=== PATIENT | male | born 1945 | race Caucasian/White ===

== ENCOUNTER 2016-08-21 02:26 | Day surgery (SDC) | payer MEDICARE, OTHER ==
[2016-08-21] VITALS (8 sets, daily range): BP systolic 83–127; BP diastolic 60–85; PULSE 76–117; RESP 12–16; O2SAT 96–100
[~2016-08-21] VITALS: Ht 180.3 cm; Wt 104.0 kg
[~2016-08-21 02:26] MED LIST: ATOR20TA PO; CHOL100045 PO; CYAN250014 PO; DABI150C PO; FERR-83 PO; HYDR25TA4 PO; LEVE500T3 PO; METO25TA6 PO
[2016-08-21] MEDS ORDERED: fentaNYL-PF 50 mCg/mL 2 mL Inj IVPUSH PRN (06:00)
[2016-08-21] MEDS ORDERED: Sodium Chloride LOK Flush 10 mL Syringe IV PRN (06:00)
[2016-08-21] MEDS ORDERED: 0.9% Sodium Chloride 1,000 ML IV ONE (12:52)
--- NOTE | 2016-08-21 12:59 | PCM.ENDEGD ---
EGD Date of Service: Aug 21, 2016 Physician Neptali Mcclain MD Pre Procedure Diagnosis: Anemia Post Procedure Dx & Findings: Atrophic gastritis and esophagitis Procedure Esophagogastroduodenoscopy PROCEDURE IN DETAIL: After proper sedation, Olympus video endoscope was inserted into patient's mouth and esophagus was successfully intubated. Scope introduced esophagus. Esophagus showed normal shiny whitish mucosa consistent with squamous cell component. Z line was in irregular tact at 40 cm from the incisors. Biopsies were obtained. Scope further events to the stomach.Stomach showed significant atrophy with decreased rugae folds with mild redness consistent with atrophic gastropathy. Biopsies obtained. Cardia fundus body antrum pylorus were all visualized. Retroflexion was done. Stomach was easily inflated and deflatable using air. Scope further events to the distal duodenum. Duodenum revealed normal villous structures with normal appearing folds without any mass ulcer erosion. 5 biopsies obtained. Impression Irregular Z line Atrophic gastropathy Recommendation Follow up in the GI clinic with PA's Presedation Assessment Risks and Benefits Informed consent was obtained from the patient after all risks and benefits including but not limited to drug reaction, infection, pain, bleeding, perforation, as well as alternatives were discussed. Patient monitoring Continuous pulse oximetry, cardiac monitoring, blood pressure monitoring, IV access, and oxygen at 2L per nasal cannula. Periprocedural Fentanyl: Fentanyl 100mcg Incrementally Midazolam: Midazolam 6mg Incrementally Complications There were no periprocedural complications identified. Post Procedure Plan Post Procedure Recommendations 1. Restrict activities today. 2. Resume normal activities in the morning. 3. Resume medications. 4. GERD behavioral modification: - Avoid fatty, acidic, spicy, large meals - Do not lie down after meals - Do not eat or drink anything for at least 2 1/2 hours before going to bed at night - Discontinue tobacco and alcohol - Decrease or avoid caffeine - Avoid chocolate and mints - Decrease weight - Avoid aspirin and non steroidal anti-inflammatory agents (NSAID) such as Aleve, Advil, Mobic, Naproxen, Ibuprofen, etc 5. Add proton pump inhibitor. Take 30 minutes before 1st meal of the day. 6. Patient informed of normal post procedure side effects as bloating, drowsiness, blood streaking in the stool 7. If gastric biopsy reveal H.pylori, continue with appropriate treatment 8. If small bowel biopsy reveals celiac, continue with appropriate treatment 9. Please don't hesitate to call me with any questions Neptali Mcclain MD Aug 21, 2016 12:59
--- NOTE | 2016-08-21 13:01 | PCM.ENDCOL ---
Colonoscopy Date of Service: Aug 21, 2016 Physician Neptali Mcclain MD Pre Procedure Diagnosis: Anemia Post Procedure Dx & Findings: Polyp hemorrhoids and diverticula Procedure Colonoscopy PROCEDURE IN DETAIL: Prep adequate Withdrawal time 12 minutes After unremarkable rectal examination the Olympus video colonoscope was inserted patient's anal canal and was advanced to cecum. Landmarks were identified including the ileocecal valve and appendiceal orifice. Scope further events to the terminal ileum. Advanced 10 cm. Normal villous structures without ulcer or mass erosion noted. Scope was withdrawn systematically. Visualized colonic mucosa showed healthy shiny mucosa with normal healthy-appearing vasculature. Multiple Diverticuli noted small to large from the distal sigmoid to the transverse colon. 2 mm polyp noted in the rectum. This was removed completely with cold snare. In the rectum retroflexion was done which showed hemorrhoids. Anal canal was inspected carefully on the way out and hemorrhoids noted. Impression Polyp 1 status post complete removal Diverticuli Hemorrhoids Normal terminal ileum Recommendation Repeat colonoscopy 5 years Diverticular diet Presedation Assessment Risks and Benefits Informed consent was obtained from the patient after all risks and benefits including but not limited to drug reaction, infection, pain, bleeding, perforation, as well as alternatives were discussed. Patient monitoring Continuous pulse oximetry, cardiac monitoring, blood pressure monitoring, IV access, and oxygen at 2L per nasal cannula. Periprocedural Fentanyl: Fentanyl 100mcg Incrementally Midazolam: Midazolam 6mg Incrementally Complications There were no periprocedural complications identified. Post Procedure Plan Post Procedure Recommendations 1. Restrict activities today. 2. Resume normal activities in the morning. 3. Resume medications. 4. Patient informed of normal post procedure side effects as bloating, drowsiness, blood streaking in the stool. 5. average risk CRCS. If colon polyps come back as: -Hyperplastic- can repeat colonoscopy in 10 years -Tubular adenoma- repeat colonoscopy in 5 years -Tubulovillous/villous adenoma- repeat colonoscopy in 3 years -If any dysplasia- return to clinic as soon as possible 6. Please don't hesitate to call me with any questions. Neptali Mcclain MD Aug 21, 2016 13:01
--- NOTE | 2016-08-22 13:45 | PATH ---
SURGICAL PATHOLOGY Attending Physician:Neptali Mcclain M.D. CASE STATUS: Signed Out PATIENT NAME: JIGAR BOOKER PID: [id number] : 1945 DATE COLLECTED:08/21/2016 23:32 SPECIMEN: 1: Duodenum, Biopsy 2: Stomach, Antrum, Biopsy 3: Esophagus, Biopsy 4: Rectum, Biopsy CLINICAL HISTORY: 1). DUODENAL BIOPSY 2). GASTRIC ANTRUM - R/O H.PYLORI 3). DISTAL ESOPHAGUS 4). RECTAL POLYP X1 FINAL DIAGNOSIS: 1.DUODENAL BIOPSY: FRAGMENTS OF NORMAL-APPEARING DUODENUM MUCOSA. Normal delicate mucosal villi present. Negative for significant inflammation, dysplasia and malignancy. 2.GASTRIC ANTRUM BIOPSY: DIFFUSE MODERATE TO SEVERE CHRONIC GASTRITIS INVOLVING ANTRAL MUCOSA. Immunohistochemistry for Helicobacter pending, to be reported by addendum. Focally positive for intestinal metaplasia. Negative for dysplasia and malignancy. 3.DISTAL ESOPHAGUS BIOPSY: FRAGMENT OF GASTRIC CARDIA-TYPE MUCOSA WITH NO SQUAMOUS MUCOSA IDENTIFIED. CHRONIC INFLAMMATION WITH REACTIVE CHANGES, BUT NEGATIVE FOR SPECIALIZED METAPLASIA OF LOMELI' S-TYPE ESOPHAGUS. Negative for dysplasia and malignancy. 4.RECTAL POLYP: HYPERPLASTIC POLYP. ICD10 K29.70 GROSS DESCRIPTION: The specimen is received in four formalin filled containers labeled with the patient's name. 1). The specimen is sublabeled "duodenum" and consists of 3 portions of tissue which aggregate to 0.1 x 0.1 x 0.1 CM to 0.3 x 0.2 x 0.2 CM. All fragments are totally submitted in cassette 1A. 2). The specimen is sublabeled "gastric antrum" and consists of 3 portions of tissue which aggregate to 0.3 x 0.2 x 0.2 CM. The specimen is entirely submitted in cassette 2A. 3). The specimen is sublabeled "distal esophagus" and consists of a 0.3 x 0.3 x 0.2 CM portion of tissue which is entirely submitted in cassette 3A. 4). The specimen is sublabeled "rectal polyps" and consists of a 0.3 x 0.3 x 0.3 CM portion of tissue which is entirely submitted in cassette 4A. 08/22/2016 [facility] MICRO DESCRIPTION: See diagnosis. ICD-9 CODES: CPT CODES: 1: 43256 2: 66489, 74366 3: 34505 4: 00072, 57235 PROCEDURE/ADDENDA: Immunohistochemistry SPI Interpretation {Not Entered} Results-Comments 2.GASTRIC ANTRUM BIOPSY: AN IMMUNOSTAIN FOR HELICOBACTER ORGANISMS IS POSITIVE. This test was developed and its performance characteristics determined by [employer]. It has not been cleared or approved by the [place]. Food and Drug Administration. The FDA has determined that such clearance or approval is not necessary. This test is used for clinical purposes. It should not be regarded as investigational or for research. Electronically Signed Out Ry Zambrano MD Electronically Signed Out Oziel Ratliff MD [facility] Pathology [facility] [address], [place] [address] Technical component performed at [facility], [address], [place], [address]
== END 2016-08-21 23:59 | disposition home or self-care (01) ==
LOC: END 02:26
PROVIDERS: ATTEND Internal Medicine
DX: K62.1 Rectal polyp (principal); K64.9 Unspecified hemorrhoids; K57.30 Diverticulosis of large intestine without perforation or abscess without bleeding; K31.9 Disease of stomach and duodenum, unspecified; K29.50 Unspecified chronic gastritis without bleeding; D50.9 Iron deficiency anemia, unspecified; I10 Essential (primary) hypertension; I48.91 Unspecified atrial fibrillation; E78.2 Mixed hyperlipidemia; G40.909 Epilepsy, unspecified, not intractable, without status epilepticus; N40.1 Benign prostatic hyperplasia with lower urinary tract symptoms; N13.8 Other obstructive and reflux uropathy; Z85.46 Personal history of malignant neoplasm of prostate; Z86.73 Personal history of transient ischemic attack (TIA), and cerebral infarction without residual deficits; Z79.01 Long term (current) use of anticoagulants
CPT/HCPCS: 43239; 45385; 88305; 88342; 99153; G0500; J2250; J3010; J7030